=== PATIENT | male | born 1975 | race Caucasian/White ===

== ENCOUNTER → 2023-11-07 | Outpatient (CLI) | payer BC ==
[~2023-11-07] MED LIST: MOTRIN 600600 MG/TAB PO; OMEGA-3 1000 MG1 CAP PO; PERCOCET 325 MG1 TA2 PO
== END ==
LOC: COL.RAD 13:34
DX: N43.3 Hydrocele, unspecified (principal); Q55.29 Other congenital malformations of testis and scrotum